=== PATIENT | female | born 1990 | race Caucasian/White ===

== ENCOUNTER 2016-05-31 14:55 | Emergency (ER) | payer OTHER, MEDICAID ==
[~2016-05-31] VITALS: Ht 160 cm; Wt 49.5 kg
[2016-05-31 14:56] VITALS: BP 104/64
== END 2016-05-31 15:56 | disposition home or self-care (01) ==
LOC: ED 15:36
DX: J02.8 Acute pharyngitis due to other specified organisms (principal); J00 Acute nasopharyngitis [common cold]
CPT/HCPCS: 71020

== ENCOUNTER 2016-06-21 16:59 | Emergency (ER) | payer OTHER, MEDICAID ==
[~2016-06-21] VITALS: Ht 160 cm; Wt 48.7 kg
[2016-06-21 17:01] VITALS: BP 108/70
== END 2016-06-21 18:13 | disposition home or self-care (01) ==
LOC: ED 17:45
DX: H61.21 Impacted cerumen, right ear (principal)
CPT/HCPCS: 99281

== ENCOUNTER 2016-07-31 12:55 | Emergency (ER) | payer MEDICAID, OTHER ==
[~2016-07-31] VITALS: Ht 160 cm; Wt 50.2 kg
[2016-07-31] MEDS ORDERED: SODIUM CHLORIDE 0.9% 1,000ML IVBOLUS ONE (14:00)
[2016-07-31] MEDS ORDERED: SODIUM CHLORIDE FLUSH 10ML SYR IVF ONE (14:00)
[2016-07-31] MEDS ORDERED: KETOROLAC 30 MG/1 ML ONE (14:17)
[2016-07-31] MEDS ORDERED: ONDANSETRON 2MG/ML, 2ML ONE (14:17)
[2016-07-31] MEDS ORDERED: ONDANSETRON 2MG/ML, 2ML IVPush ONE (14:30)
[2016-07-31] MEDS ORDERED: KETOROLAC 30 MG/1 ML IVPush ONE (14:30)
[2016-07-31 14:38] LABS: BLOOD UREA NITROGEN 15 mg/dL (7-18)
[2016-07-31 16:33] VITALS: BP 98/54
== END 2016-07-31 16:44 | disposition home or self-care (01) ==
LOC: ED 16:30
DX: B34.9 Viral infection, unspecified (principal); E86.0 Dehydration; R11.2 Nausea with vomiting, unspecified; J45.909 Unspecified asthma, uncomplicated
CPT/HCPCS: 36415; 71010; 80048; 82040; 84703; 85025; 96361; 96374; 96375; 99285; J1885; J2405; J7030

== ENCOUNTER 2016-08-01 19:13 | Emergency (ER) | payer OTHER ==
[~2016-08-01] VITALS: Ht 160 cm; Wt 51.1 kg
[2016-08-01] MEDS ORDERED: SODIUM CHLORIDE FLUSH 10ML SYR IVF ONE (19:30)
[2016-08-01] MEDS ORDERED: SODIUM CHLORIDE 0.9% 1,000ML IVBOLUS ONE (19:30)
[2016-08-01] MEDS ORDERED: ONDANSETRON 2MG/ML, 2ML IVPush ONE (19:30)
[2016-08-01] MEDS ORDERED: ACETAMINOPHEN 500 MG TABLET ONE (19:49)
[2016-08-01] MEDS ORDERED: ACETAMINOPHEN 325 MG TABLET PO ONE (20:00)
[2016-08-01 20:22] LABS: PATH.CAST-FLAG NOT PRESENT; SPERM-FLAG NOT PRESENT; SRC-FLAG NOT PRESENT; XTAL-FLAG NOT PRESENT; YLC-FLAG NOT PRESENT
[2016-08-01 22:33] VITALS: BP 104/57
== END 2016-08-01 22:35 | disposition home or self-care (01) ==
LOC: ED 22:29
DX: J02.8 Acute pharyngitis due to other specified organisms (principal); M79.1 Myalgia; B97.89 Other viral agents as the cause of diseases classified elsewhere; J45.909 Unspecified asthma, uncomplicated
CPT/HCPCS: 36415; 81001; 85025; 87081; 87880; 99284

== ENCOUNTER → 2016-10-30 | Outpatient (CLI) | payer OTHER ==
[~2016-10-30] MED LIST: ALBU90AE PO; CLINDAMYCIN 150 MG/ML, 6ML ONE; INHALER PO
== END ==
LOC: STAR 10:03
PROVIDERS: ATTEND Obstetrics & Gynecology Female Pelvic Medicine and Reconstructive Surgery
DX: Z02.9 Encounter for administrative examinations, unspecified (principal)

== ENCOUNTER 2016-11-04 09:41 | Day surgery (SDC) | payer OTHER ==
[~2016-11-04] VITALS: Ht 160 cm; Wt 48.2 kg
[~2016-11-04 09:41] MED LIST changes: +BUPIVACAINE/PF 0.25% ONE; -CLINDAMYCIN 150 MG/ML, 6ML ONE; +EPINEPHRINE 1 MG/ML, 1ML ONE; +FENTANYL PF 100 MCG/2ML ONE; +MIDAZOLAM 1 MG/ML, 2ML ONE
[2016-11-04] MEDS ORDERED: LACTATED RINGERS 1,000 ML IV SCH (10:14)
[2016-11-04 10:17] VITALS: BP 100/63
[2016-11-04 10:42] LABS: HCG UR OBC PASS
[2016-11-04] MEDS ORDERED: PROPOFOL 10 MG/ML, 20ML ONE (10:59)
[2016-11-04] MEDS ORDERED: ONDANSETRON 2MG/ML, 2ML ONE ×2 (10:59→13:06)
[2016-11-04] MEDS ORDERED: GLYCOPYRROLATE 0.2MG/1ML, 5ML ONE (10:59)
[2016-11-04] MEDS ORDERED: NEOSTIGMINE 1 MG/ML, 10ML ONE (10:59)
[2016-11-04] MEDS ORDERED: CEFAZOLIN 1,000 MG ONE (10:59)
[2016-11-04] MEDS ORDERED: DEXAMETHASONE 4 MG/ML, 1ML ONE (10:59)
[2016-11-04] MEDS ORDERED: ROCURONIUM 10 MG/ML ONE (10:59)
[2016-11-04] MEDS ORDERED: ONDANSETRON 2MG/ML, 2ML IVPush PRN ×2 (11:00→15:00)
[2016-11-04] MEDS ORDERED: PROMETHAZINE 25 MG/ML, 1ML IV PRN (11:00)
[2016-11-04] MEDS ORDERED: MEPERIDINE/PF 25MG/0.5ML IVPush PRN (11:00)
[2016-11-04] MEDS ORDERED: KETOROLAC 30 MG/1 ML IV PRN (11:00)
[2016-11-04] MEDS ORDERED: OXYcodone 5 MG/5 ML ORAL.SOL UDC PO PRN (11:00)
[2016-11-04] MEDS ORDERED: FENTANYL PF 100 MCG/2ML IV PRN (11:00)
[2016-11-04] MEDS ORDERED: ALBUTEROL SULFATE 2.5 MG/3 ML NPPB PRN (11:00)
[2016-11-04] MEDS ORDERED: OXYcodone 5 MG/5 ML ORAL.SOL UDC ONE (12:35)
[2016-11-04] MEDS ORDERED: FENTANYL PF 100 MCG/2ML ONE (12:35)
[2016-11-04] MEDS ORDERED: HYDROmorphone 1 MG/ML, 1ML ONE (12:38)
[2016-11-04] MEDS: HYDROmorphone 1 MG/ML, 1ML IV PRN ×2 (12:41→12:47)
[2016-11-04] MEDS ORDERED: MEPERIDINE/PF 25MG/0.5ML ONE (13:06)
[2016-11-04] MEDS ORDERED: KETOROLAC 30 MG/1 ML ONE (13:16)
[2016-11-04] MEDS ORDERED: OXYcodone/APAP 5/325MG TABLET ONE (14:54)
[2016-11-04] MEDS ORDERED: OXYcodone/APAP 5/325MG TABLET PO PRN (15:00)
[2016-11-04] MEDS ORDERED: PROMETHAZINE 25 MG SUPP PR ONE (16:44)
[2016-11-04] MEDS ORDERED: PROMETHAZINE 25 MG SUPP PR PRN (17:00)
== END 2016-11-04 19:20 | disposition home or self-care (01) ==
LOC: OUT 09:41
PROVIDERS: ATTEND Obstetrics & Gynecology Female Pelvic Medicine and Reconstructive Surgery
DX: N92.1 Excessive and frequent menstruation with irregular cycle (principal); N94.6 Dysmenorrhea, unspecified; N94.10 Unspecified dyspareunia; J45.909 Unspecified asthma, uncomplicated; Z98.890 Other specified postprocedural states; Z88.8 Allergy status to other drugs, medicaments and biological substances
CPT/HCPCS: 58552; 81025; 88307; J0171; J0690; J1100; J1170; J1885; J2175; J2250; J2405; J2704; J2710; J3010; J3490; J7120

== ENCOUNTER 2017-04-22 07:45 | Emergency (ER) | payer OTHER ==
[~2017-04-22] VITALS: Ht 160 cm; Wt 50.8 kg
[~2017-04-22 07:45] MED LIST changes: -BUPIVACAINE/PF 0.25% ONE; -EPINEPHRINE 1 MG/ML, 1ML ONE; -FENTANYL PF 100 MCG/2ML ONE; -MIDAZOLAM 1 MG/ML, 2ML ONE
[2017-04-22] MEDS ORDERED: SODIUM CHLORIDE FLUSH 10ML SYR IVF ONE (08:30)
[2017-04-22] MEDS ORDERED: ONDANSETRON 2MG/ML, 2ML IVPush ONE (08:30)
[2017-04-22] MEDS ORDERED: SODIUM CHLORIDE 0.9% 1,000ML IVBOLUS ONE (08:30)
[2017-04-22] MEDS ORDERED: FAMOTIDINE 20 MG/2 ML IVP ONE (08:30)
[2017-04-22] MEDS ORDERED: ONDANSETRON 2MG/ML, 2ML ONE (09:14)
[2017-04-22] MEDS ORDERED: FAMOTIDINE 20 MG/2 ML ONE (09:14)
[2017-04-22 09:24] VITALS: BP 94/55
[2017-04-22 09:41] LABS: BASOPHILS # (AUTO) 0.01 x10^3/uL (0-0.1); BASOPHILS % (AUTO) 0 % (0-1); EOSINOPHILS # (AUTO) 0.02 x10^3/uL (0-0.4); EOSINOPHILS % (AUTO) 0 % (1-7); LYMPHOCYTES # (AUTO) 0.52 x10^3/uL (1-3.4); LYMPHOCYTES % (AUTO) 4 % (22-44); MD NO; MEAN CORPUSCULAR HEMOGLOBIN 27.6 pg (27.0-34.8); MEAN CORPUSCULAR HGB CONC 33.6 g/dL (32.4-35.8); MEAN CORPUSCULAR VOLUME 82.4 fL (80-100); MEAN PLATELET VOLUME 8.2 fL (7.4-10.4); MONOCYTES # (AUTO) 0.79 x10^3/uL (0.2-0.8); MONOCYTES % (AUTO) 6 % (2-9); NEUTROPHILS # (AUTO) 11.74 x10^3/uL (1.8-6.8); NEUTROPHILS % (AUTO) 90 % (42-75); PLATELET COUNT 236 x10^3/uL (130-400); RED BLOOD COUNT 4.81 x10^6/uL (3.82-5.3); RED CELL DISTRIBUTION WIDTH 14.4 % (9.6-15.2)
[2017-04-22 09:53] LABS: ALANINE AMINOTRANSFERASE 16 U/L (12-78); ALBUMIN 3.6 g/dL (3.4-5.0); ANION GAP 8 mmol/L (5-15); CHLORIDE 108 mmol/L (98-107); CREATININE 0.84 mg/dL (0.55-1.02)
[2017-04-22 09:55] LABS: ALKALINE PHOSPHATASE 53 U/L (45-117); TOTAL PROTEIN 7.5 g/dL (6.4-8.2)
[2017-04-22 10:35] LABS: MICROSCOPIC INDICATED
[2017-04-22 10:42] LABS: CULTURE INDICATED? YES
== END 2017-04-22 12:02 | disposition home or self-care (01) ==
LOC: ED 08:55
DX: K52.9 Noninfective gastroenteritis and colitis, unspecified (principal); E86.0 Dehydration; J45.909 Unspecified asthma, uncomplicated
CPT/HCPCS: 36415; 74018; 80053; 81001; 83690; 85025; 87086; 96374; 96375; 99285; J2405; J7030; S0028